=== PATIENT | female | born 2000 | race Caucasian/White ===

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

== ENCOUNTER 2022-01-19 00:49 | Emergency (ER) | payer OTHER ==
--- OUTSIDE RECORDS SUMMARY | 2022-01-19 00:53 | XMS REPORT | Continuity of Care Document ---
:2000 Author Organization [facility] t Address [address] [place] [address] Care Team Providers Name Role Phone Mavis Kee Primary Care Physician [phone] Dwight Schmitt Attending Clinician Dwight VARGAS Attending Clinician Unavailable Doctor Unassigned, Name Attending Clinician Unavailable Gabino Kee Attending Clinician Payers Payer Name Policy Type Policy Number Effective Date Expiration Date S ource Problems Condition Condition Condition Status Onset Resolution Last Treating Co mments Source Name Details Category Date Date Treatment Clinician Date Anemia, Anemia, Disease Active Univers 2-05 it y of 00:00: [address] Positive Positive Disease Active Unive rs GBS test GBS test 2-04 ity of 00:00: [address] Anemia of Anemia of Disease Active 2020-06 Uni vers mother in mother in -24 ity of , , [place] antepartum antepartum 00 [facility] Supervisio Supervisio Disease Active U nivers n of other n of other 7-19 it y of normal normal 00:00: [place] 00 [facility] Multiparit Multiparit Disease Active U nivers y y 7-19 ity of 00:00: [address] Screening Screening Disease Active Uni vers examinatio examinatio 4-06 it y of n for STD n for STD 00:00: [place] (sexually (sexually 00 [facility] transmitte transmitte Br anch d disease) d disease) Lump or Lump or Disease Active Univers mass in mass in 4-06 ity of breast breast 00:00: [place] 00 Medical Branch Disease Active 2020- Univers (spontaneo (spontaneo 8-29 it y of [place] vaginal [place] vaginal [place] delivery) delivery) 00 [facility] Single Single Disease Active 2020- Univers live live 8-29 it y of 00:00: [place] 00 Medical Branch Obstetrica Obstetrica Disease Active 2020-0 U nivers l l 8-29 ity of laceration laceration 00:[place] (side (side 00 Medical Wall) Wall) Branch 38 weeks 38 weeks Disease Active 2020-0 Unive rs gestation gestation 8-28 ity of of of 00:00: [place] 00 [facility] High risk High risk Disease Active 2020- Uni vers teen teen 3-16 [place] in third in third 00 Medica l trimester trimester Bran ch BMI BMI Disease Active 2020- Univers 26.0-26.9, 26.0-26.9, 3-16 it y of adult adult 00:00: [place] Medical Branch Chlamydia Chlamydia Disease Active Overview: Univers trachomati trachomati 1-21 Formattin ity of s s 00:00: g of this [place] infection infection 00 note Medi radha in mother in mother might be Br anch during during different third third from the trimester trimester original. of of Pending akhil Supervisio Supervisio Disease Active 2019- U nivers n of high n of high 1-17 ity of risk risk 00:00: [place] 00 Medi radha in third in third Branch trimester trimester Marijuana Marijuana Disease Active 2020-0 Overview: Univers use use 1-17 Formattin ity of 00:00: g of this [place] 00 note Medical might be Branch different from the original. Reports quit 06/14/19 Allergies, Adverse Reactions, Alerts Allergy Allergy Status Severity Reaction(s) Onset Inactive Treating Comm ents Source Name Type Date Date Clinician NO KNOWN Drug Active Univers ALLERGIE Class ity of S [facility] Social History Social Habit Start Date Stop Date Quantity Comments Source History SDOH University o f Alcohol Comment [place] Med ical Branch History [facility] University o f Alcohol Std [place] Medical Drinks Branch History [facility] o f Alcohol Binge [place] Medic al Branch Exposure to Not sure University of SARS-CoV-2 [facility] (event) Branch Alcohol intake 2021-09-17 2021-09-17 Lifetime University of 00:00:00 00:00:00 non-drinker [place] Medical (finding) Branch Tobacco use and 2019-07-15 2019-07-15 Never used Universit y of exposure 00:00:00 00:00:00 [place] [facility] History SDOH 2019-07-15 2019-07-15 1 University o f Alcohol Frequency 00:00:00 00:00:00 [facility] edical Branch Tobacco Comment 2019-07-15 2019-07-15 quit with Universit y of 00:00:00 00:00:00 positive preg [place] Medic al test Branch History of 2018-07-15 2019-06-14 Cigarette Smoker Universi ty of tobacco use 00:00:00 00:00:00 [facility] Sex Assigned At [birth year] Universit y of 00:00:00 00:00:00 [facility] Smoking Status Start Date Stop Date Source Former smoker 2019-07-15 00:00:00 2019-07-15 00:00:[address] [facility] Medications Ordered Filled Start Stop Current Ordering Indication Dosage Frequency Signature Comments Components Source Medication Medication Date Date Medication? Clinician (SIG) Name Name etonogestre 2021- No [id number] 68mg Univers L 09-17 ity of (NEXPLANON) 20:15: 19:07 [place] implant 68 00 :00 Medical mg Branch etonogestre 2021- No [id number] 68mg 68 mg, Univers L 09-17 Subdermal, ity of (NEXPLANON) 20:15: 19:07 ONCE NOW, [place] implant 68 00 :00 1 dose, On Med ical mg Tue Branch 09/17/21 at 1515, Routine
Use approved by: [employer] docusate Yes [id number] 240mg Take 1 Un bear calcium 240 2-05 capsule by it y of mg capsule 00:00: mouth once [place] 00 daily as Medical needed for Branch Constipati on. ferrous Yes [id number] 325mg Take 1 Uni vers sulfate 325 2-05 tablet by ity of mg (65 mg 00:00: mouth [place] iron) 00 daily. Medical tablet Branch ibuprofen Yes [id number] 600mg Take 1 U nivers 600 mg 2-05 tablet by ity of tablet 00:00: mouth [place] 00 every 6 Medical (six) Branch hours as needed (Pain). Take with food or milk. docusate Yes [id number] 240mg Take 1 Un bear calcium 240 2-05 capsule by it y of mg capsule 00:00: mouth once [place] 00 daily as Medical needed for Branch Constipati on. ferrous Yes [id number] 325mg Take 1 Uni vers sulfate 325 2-05 tablet by ity of mg (65 mg 00:00: mouth [place] iron) 00 daily. Medical tablet Branch ibuprofen Yes [id number] 600mg Take 1 U nivers 600 mg 2-05 tablet by ity of tablet 00:00: mouth [place] 00 every 6 Medical (six) Branch hours as needed (Pain). Take with food or milk. Yes [id number] 1{packe Take 1 Univers vit 8-16 t} Packet by ity of 33-iron-fol 00:00: mouth [place] ic-dha 00 daily. Medical (SELECT-OB Branch + DHA) 29 mg iron-1 mg -250 mg combo pack Yes [id number] 1{packe Take 1 Univers vit 8-16 t} Packet by ity of 33-iron-fol 00:00: mouth [place] ic-dha 00 daily. Medical (SELECT-OB Branch + DHA) 29 mg iron-1 mg -250 mg combo pack Immunizations Ordered Immunization Filled Immunization Date Status Commen ts Source Name Name [facility] 2021-05-22 Completed University of 00:00:00 [facility] Influenza Virus 2021-05-22 Completed Universit y of Vaccine Quad IM, 00:00:00 [place] Me dical Preserv and ABX Free Bran ch 6 MO-64 YRS TDAP 2021-05-22 Completed University of 00:00:00 [facility] Influenza Virus 2021-05-22 Completed Universit y of Vaccine Quad IM, 00:00:00 [place] Me dical Preserv and ABX Free Bran ch 6 MO-64 YRS HPV9 2020-11-06 Completed University of 00:00:00 [facility] HPV9 2020-11-06 Completed University of 00:00: [facility] HPV9 2020-07-09 Completed University of 00:00: [facility] HPV9 2020-07-09 Completed University of 00:00:00 [facility] HPV9 2020-04-06 Completed University of 00:00:00 [facility] HPV9 2020-04-06 Completed University of 00:00:00 [facility] Influenza Virus 2020-03-16 Completed Universit y of Vaccine Quad .5 mL 00:00:00 [facility] 6+ MO [place] Influenza Virus 2020-03-16 Completed Universit y of Vaccine Quad .5 mL 00:00:00 [facility] 6+ MO [place] TDAP 2019-12-29 Completed University of 00:00:00 [facility] TDAP 2019-12-29 Completed University of 00:00:00 [facility] Influenza Virus 2019-07-19 Completed Universit y of Vaccine Quad .5 mL 00:00:00 [facility] 6+ MO [place] Influenza Virus 2019-07-19 Completed Universit y of Vaccine 00:00:00 [facility] Influenza Virus 2019-07-19 Completed Universit y of Vaccine Quad .5 mL 00:00:00 [facility] 6+ MO [place] Influenza Virus 2019-07-19 Completed Universit y of Vaccine 00:00:00 [facility] Meningococcal 2016-02-15 Completed University of Vaccine 00:00:00 [facility] TDAP 2016-02-15 Completed University of 00:00:00 [facility] HEPATITIS A 2016-02-15 Completed University of 00:00:00 [facility] Meningococcal 2016-02-15 Completed University of Vaccine 00:00:00 [facility] TDAP 2016-02-15 Completed University of 00:00:00 [facility] HEPATITIS A 2016-02-15 Completed University of 00:00:00 [facility] HEPATITIS A 2011-04-21 Completed University of 00:00:00 [facility] HEPATITIS A 2011-04-21 Completed University of 00:00:00 [facility] Varicella 2008-03-06 Completed University of (varivax)(chicken 00:00:00 [facility] edical pox) Branch Varicella 2008-03-06 Completed University of (varivax)(chicken 00:00:00 [facility] edical pox) Branch DTP 2007-02-18 Completed University of 00:00:00 [facility] MMR 2007-02-18 Completed University of 00:00:00 [facility] Polio (IPV/OPV) 2007-02-18 Completed Universit y of 00:00:00 [facility] DTP 2007-02-18 Completed University of 00:00:00 [facility] MMR 2007-02-18 Completed University of 00:00:00 [facility] Polio (IPV/OPV) 2007-02-18 Completed Universit y of 00:00:00 [facility] Varicella 2004-05-20 Completed University of (varivax)(chicken 00:00:00 [facility] edical pox) Branch Varicella 2004-05-20 Completed University of (varivax)(chicken 00:00:00 [facility] edical pox) Branch HIB 3 Dose Schedule 2004-03-21 Completed Unive rsity of 00:00:00 [facility] MMR 2004-03-21 Completed University of 00:00:00 [facility] HIB 3 Dose Schedule 2004-03-21 Completed Unive rsity of 00:00:00 [facility] MMR 2004-03-21 Completed University of 00:00:00 [facility] DTP 2003-09-07 Completed University of 00:00:00 [facility] Polio (IPV/OPV) 2003-09-07 Completed Universit y of 00:00:00 [facility] Pneumococcal 7 2003-09-07 Completed University of Conjugate, PCV7 00:00:00 [facility] [place] [facility] ical (Prevnar7) Branch DTP 2003-09-07 Completed University of 00:00:00 [facility] Polio (IPV/OPV) 2003-09-07 Completed Universit y of 00:00:00 [facility] Pneumococcal 7 2003-09-07 Completed University of Conjugate, PCV7 00:00:00 [place] Med ical (Prevnar7) Branch DTP 2003-08-08 Completed University of 00:00:00 [facility] HIB 3 Dose Schedule 2003-08-08 Completed Unive rsity of 00:00:00 [facility] Hep B, Adol or Pedi 2003-08-08 Completed Unive rsity of Dosage 00:00:00 [facility] Polio (IPV/OPV) 2003-08-08 Completed Universit y of 00:00:00 [facility] Pneumococcal 7 2003-08-08 Completed University of Conjugate, PCV7 00:00:00 [place] Med ical (Prevnar7) Branch DTP 2003-08-08 Completed University of 00:00:00 [facility] HIB 3 Dose Schedule 2003-08-08 Completed Unive rsity of 00:00:00 [facility] Hep B, Adol or Pedi 2003-08-08 Completed Unive rsity of Dosage 00:00:00 [facility] Polio (IPV/OPV) 2003-08-08 Completed Universit y of 00:00:00 [facility] Pneumococcal 7 2003-08-08 Completed University of Conjugate, PCV7 00:00:00 [place] Med ical (Prevnar7) Branch DTP 2003-04-13 Completed University of 00:00:00 [facility] HIB 3 Dose Schedule 2003-04-13 Completed Unive rsity of 00:00:00 [facility] Hep B, Adol or Pedi 2003-04-13 Completed Unive rsity of Dosage 00:00:00 [facility] Polio (IPV/OPV) 2003-04-13 Completed Universit y of 00:00:00 [facility] Pneumococcal 7 2003-04-13 Completed University of Conjugate, PCV7 00:00:00 [place] Med ical (Prevnar7) Branch DTP 2003-04-13 Completed University of 00:00:00 [facility] HIB 3 Dose Schedule 2003-04-13 Completed Unive rsity of 00:00:00 [facility] Hep B, Adol or Pedi 2003-04-13 Completed Unive rsity of Dosage 00:00:00 [facility] Polio (IPV/OPV) 2003-04-13 Completed Universit y of 00:00:00 [facility] Pneumococcal 7 2003-04-13 Completed University of Conjugate, PCV7 00:00:00 [place] Med ical (Prevnar7) Branch Hep B, Adol or Pedi 2002 Completed Unive rsity of Dosage 00:00:00 [facility] Hep B, Adol or Pedi 2002 Completed Unive rsity of Dosage 00:00:00 [facility] Vital Signs Vital Name Observation Time Observation Value Comments Source Systolic blood 2021-09-17 15:14:00 111 mm[Hg] Univer sity of pressure [facility] Diastolic blood 2021-09-17 15:14:00 58 mm[Hg] Unive rsity of pressure [facility] Heart rate 2021-09-17 15:14:00 69 /min General acute hospital Body temperature 2021-09-17 15:14:00 36.33 [facility] Res[facility] rate 2021-09-17 15:14:00 16 /min [facility] Body height 2021-09-17 15:14:00 152.4 cm General acute hospital Body weight 2021-09-17 15:14:00 58.287 kg General acute hospital BMI 2021-09-17 15:14:00 25.10 kg/m2 General acute hospital Body mass index 2021-09-17 15:14:00 81.03 % Unive rsity of (BMI) [Percentile] [facility] Per age and sex Branch Procedures Procedure Date / Time Performing Clinician Source Performed POCT TEST 2021-09-17 15:15:00 Mc Vargas [facility] CONSENT FOR 2021-09-17 05:01:00 Doctor Unaalana, Mary Jane Univer sity of [place] CONTRACEPTION Name [facility] Encounters Start End Encounter Admission Attending Care Care Encounter Source Date/Time Date/Time Type Type Clinicians Facility Department ID 2021-09-17 2021-09-17 Office GUALBERTO Vargas 1.2.840.114 [id number] Univers 09:45:00 10:56:00 Visit Mc Quintanilla [employer] [id number] ity [facility] [id number] [place] as MATERNAL [id number] Med ical & CHILD [address] [place] [address] 2021-09-17 2021-09-17 Outpatient R SHEYLA [facility] [id number] Univers 09:45:00 10:56:[address] [facility] 2021-09-17 2021-09-17 Orders Doctor THOMASON 1.2.840.114 [id number] Univers 00:00:00 00:00:00 Only Unassigned, JENNIFER [id number] [facility] 4.2.7.2.686 [place] as [id number] [address] 2021-02-11 2021-02-11 [facility] [id number] 11:46:35 12:01:35 Roshunda R [employer] [id number] Visit [facility] [id number] MATERNAL [id number] & CHILD 107 [facility] 2021-01-14 2021-01-14 [facility] [id number] 11:01:09 12:17:32 Roshunda R [employer] [id number] Visit [facility] [id number] MATERNAL [id number] & CHILD 107 [facility] 2021-01-14 2021-01-14 Orders Doctor THOMASON [id number] 00:00:00 00:00:00 Only Unassigned, JENNIFER [id number] [place] [address]686 [id number] 2020-11-20 2020-11-20 [facility] [id number] 08:00:00 23:59:00 Encounter Mavis Tariq [id number] [place] 4.2.7.2.686 [place] [id number] 2020-11-14 2020-11-14 [facility] 1.2.840.114 [id number] 00:00:00 00:00:00 Mavis Lloyd [employer] [id number] [facility] [id number] MATERNAL [id number] & CHILD 107 [facility] 2020-11-13 2020-11-13 [facility] 1.2.840.114 [id number] 14:00:00 23:59:00 Encounter Mavis Tariq [id number] [place] 4.2.7.2.686 [place] [id number] 2020-11-13 2020-11-13 Orders Doctor THOMASON 1.2.840.114 [id number] 00:00:00 00:00:00 Only Unassigned, JENNIFER [id number] [place] [facility] 4.2.7.2.686 [id number] 2020-11-06 2020-11-06 Office Anelcorin [facility] [id number] 08:18:51 08:42:49 Visit Mavis Lloyd [employer] [id number] [facility] [id number] MATERNAL [id number] & CHILD [address] [place] [address] Results Test Description Test Time Test Comments Results Result Comments Source POCT TEST 2021-09-17 15:15:00 Test Item Value Reference Range Interpretation Comme nts POCT PREG (test code = 1605) Negative On board controls acceptable with C Line (test code = 3574) Yes POCT PREG LOT # (test code = 3575) POCT PREG TEST DATE (test code = 3576) [facility]
--- NOTE | 2022-01-19 04:33 | ER ---
Nurse's Notes [facility] Name: Ela Cm Age: 21 yrs Sex: Female : 2000 Arrival Date: 01/19/2022 Time: 00:51 Bed 15 Private MD: Diagnosis: Fall on same level from slipping, tripping and stumbling with subsequent striking against object Presentation: 01/19 00:51 Acuity: MARY 3 vc1 01:13 Chief complaint: EMS states: pt was walking behind her couch, stepped on a toy and vc1 fell. states she hit her head but doesn't know if it was the wall or a table. denies LOC. pt states that all she sees is black and stars. Coronavirus screen: Client denies travel out of the [place] in the last 14 days. At this time, the client does not indicate any symptoms associated with coronavirus-19. Ebola Screen: No symptoms or risks identified at this time. Initial Sepsis Screen: Does the patient meet any 2 criteria? No. Patient's initial sepsis screen is negative. Does the patient have a suspected source of infection? No. Patient's initial sepsis screen is negative. Risk Assessment: Do you want to hurt yourself or someone else? Patient reports no desire to harm self or others. Onset of symptoms was January 19, 2022. 01:13 Method Of Arrival: EMS: [facility] vc1 Triage Assessment: 01:16 General: Appears in no apparent distress. comfortable, Behavior is calm, cooperative. vc1 Pain: Complains of pain in head Also complains of photophobia. EENT: No deficits noted. No signs and/or symptoms were reported regarding the EENT system. Neuro: No deficits noted. Level of Consciousness is awake, alert, obeys commands, Oriented to person, place, time, situation, Reports blurred vision headache. Cardiovascular: No deficits noted. Denies chest pain, shortness of breath, Capillary refill < 3 seconds Clubbing of nail beds is absent JVD is absent Patient's skin is warm and dry. Respiratory: No deficits noted. Airway is patent Trachea midline Respiratory effort is even, unlabored, Respiratory pattern is regular, symmetrical. GI: No deficits noted. No signs and/or symptoms were reported involving the gastrointestinal system. : No deficits noted. No signs and/or symptoms were reported regarding the genitourinary system. Derm: No deficits noted. No signs and/or symptoms reported regarding the dermatologic system. Skin is intact, is healthy with good turgor, Skin is dry, Skin temperature is warm. Musculoskeletal: No deficits noted. No signs and/or symptoms reported regarding the musculoskeletal system. Circulation, motion, and sensation intact. Range of motion: intact in all extremities. 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 - Social history:: Smoking status: Reported history of juuling and/or vaping. Patient/guardian denies using alcohol, street drugs. Screenin:19 Abuse screen: Denies threats or abuse. Denies injuries from another. Nutritional vc1 screening: No deficits noted. Tuberculosis screening: No symptoms or risk factors identified. Fall Risk None identified. Assessment: 01:19 General: see triage assessment . vc1 02:20 Reassessment: Patient appears in no apparent distress at this time. No changes from lg3 previously documented assessment. Patient and/or family updated on plan of care and expected duration. Pain level reassessed. Patient is alert, oriented x 3, equal unlabored respirations, skin warm/dry/pink. 04:48 Reassessment: Patient appears in no apparent distress at this time. No changes from lg3 previously documented assessment. Patient and/or family updated on plan of care and expected duration. Pain level reassessed. Patient is alert, oriented x 3, equal unlabored respirations, skin warm/dry/pink. Patient states feeling better. Patient states symptoms have improved. Vital Signs: 01:15 BP 121 / 64; Pulse 71; Resp 16; Temp 98.9(O); Pulse Ox 100% ; Weight 53.52 kg (R); lp1 Height 5 ft. 0 in. (152.40 cm); Pain 8/10; 04:48 BP 124 / 72; Pulse 74; Resp 17 S; Pulse Ox 100% on R/A; lg3 01:15 Body Mass Index 23.05 (53.52 kg, 152.40 cm) lp1 ED Course: 00:51 Patient arrived in ED. vc1 00:51 Triage completed. vc1 01:03 Fernando Verma DO is Attending Physician. ms3 01:13 Jen Martinez, RN is Primary Nurse. vc1 01:16 Arm band placed on right wrist. vc1 01:19 Patient has correct armband on for positive identification. Bed in low position. Call vc1 light in reach. Side rails up X 1. Client placed on continuous cardiac and pulse oximetry monitoring. NIBP monitoring applied. Door closed. Noise minimized. Warm blanket given. 01:30 CT Head Brain wo Cont In Process Unspecified. EDMS 04:32 Mike Dwyer DO is Referral Physician. ms3 04:53 No provider procedures requiring assistance completed. Patient did not have IV access lg3 during this emergency room visit. Administered Medications: No medications were administered Medication: 04:53 VIS not applicable for this client. lg3 Outcome: 04:32 Discharge ordered by MD. ms3 04:53 Discharged to home ambulatory, with significant other. lg3 04:53 Condition: stable 04:53 Discharge instructions given to patient, Instructed on discharge instructions, follow up and referral plans. Demonstrated understanding of instructions, follow-up care. 04:54 Patient left the ED. lg3 Signatures: Dispatcher [employer] EDMS Candace Bryson, RN RN lp1 Ame Patrick RN RN lg3 Fernando Verma DO DO ms3 Jen Martinez, RICH VILLANUEVA vc1
--- NOTE | 2022-01-19 04:33 | EDPHYS ---
Physician Documentation [facility] Name: Ela Cm Age: 21 yrs Sex: Female : 2000 Arrival Date: 01/19/2022 Time: 00:51 Bed 15 Private MD: ED Physician Fernando Verma HPI: 01/19 01:33 This 21 yrs old Female presents to ER via EMS with complaints of fall with LOC.ms3 01:33 21-year-old female with past medical history of anemia presents status post fall 30 ms3 minutes prior to arrival. Patient states she hit her head and had loss of consciousness. Patient states she currently has a headache she rates an 8/10 and describes the pain as throbbing. Patient has not taken any medications for her pain. Patient denies alleviating or inciting factors.. 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 - Social history:: Smoking status: Reported history of juuling and/or vaping. Patient/guardian denies using alcohol, street drugs. ROS: 01:33 Constitutional: Negative for fever, and chills. Eyes: Negative for injury, pain, ms3 redness, and discharge, Neck: Negative for injury, pain, and swelling, Cardiovascular: Negative for chest pain, and palpitations. Respiratory: Negative for shortness of breath, cough, wheezing, and pleuritic chest pain, Abdomen/GI: Negative for abdominal pain, nausea, vomiting, diarrhea, and constipation, MS/Extremity: Negative for injury and deformity, Skin: Negative for injury, rash, and discoloration, Psych: Negative for depression, anxiety, suicide ideation, homicidal ideation, and hallucinations. Exam: 01:33 Constitutional: This is a well developed, well nourished patient who is awake, alert, ms3 and in no acute distress. Head/Face: Normocephalic, atraumatic. Eyes: Pupils equal round and reactive to light, extra-ocular motions intact. Lids and lashes normal. Conjunctiva and sclera are non-icteric and not injected. Periorbital areas with no swelling, redness, or edema. Neck: Trachea midline, no cervical lymphadenopathy. Supple, full range of motion without nuchal rigidity, or vertebral point tenderness. No Meningismus. Chest/axilla: Normal chest wall appearance and motion. Nontender with no deformity. Cardiovascular: Regular rate and rhythm with a normal S1 and S2. No gallops, murmurs, or rubs. Normal PMI, no JVD. No pulse deficits. Respiratory: Lungs have equal breath sounds bilaterally, clear to auscultation and percussion. No rales, rhonchi or wheezes noted. No increased work of breathing, no retractions or nasal flaring. Abdomen/GI: Soft, non-tender, with normal bowel sounds. No distension or tympany. No guarding or rebound. No evidence of tenderness throughout. Skin: Warm, dry with normal turgor. Normal color with no rashes, no lesions, and no evidence of cellulitis. MS/ Extremity: Pulses equal, no cyanosis. Neurovascular intact. Full, normal range of motion. Psych: Awake, alert, with orientation to person, place and time. Behavior, mood, and affect are within normal limits. Vital Signs: 01:15 BP 121 / 64; Pulse 71; Resp 16; Temp 98.9(O); Pulse Ox 100% ; Weight 53.52 kg (R); lp1 Height 5 ft. 0 in. (152.40 cm); Pain 8/10; 04:48 BP 124 / 72; Pulse 74; Resp 17 S; Pulse Ox 100% on R/A; lg3 01:15 Body Mass Index 23.05 (53.52 kg, 152.40 cm) lp1 MDM: 01:03 Patient medically screened. ms3 04:32 Differential diagnosis: Contusion of Hematoma on Intracranial bleed-. Data reviewed: ms3 vital signs, nurses notes, radiologic studies, and as a result, I will discharge patient. Data interpreted: Pulse oximetry: on room air is 100 %. Interpretation: normal. Counseling: I had a detailed discussion with the patient and/or guardian regarding: the historical points, exam findings, and any diagnostic results supporting the discharge/admit diagnosis, radiology results, the need for outpatient follow up, to return to the emergency department if symptoms worsen or persist or if there are any questions or concerns that arise at home. ED course: On re-evaluation patient is improved, A/O x4, nad, non-toxic, ambulatory in ED, speaking full sentences.. 01/19 01:04 Order name: CT Head Brain wo Cont ms3 Administered Medications: No medications were administered Disposition Summary: 01/19/22 04:32 Discharge Ordered Location: Home ms3 Condition: Stable ms3 Diagnosis - Fall on same level from slipping, tripping and stumbling with subsequent striking ms3 against object Followup: ms3 - With: Mike Dwyer DO - When: 2 - 3 days - Reason: Re-evaluation by your physician Discharge Instructions: - Discharge Summary Sheet ms3 - Fall Prevention in the Home, Adult ms3 Forms: - Medication Reconciliation Form ms3 - Thank You Letter ms3 - Antibiotic Education ms3 - Prescription Opioid Use ms3 Signatures: Dispatcher [employer] EDMS Fernando Verma DO DO ms3 Jen Martinez RN RN vc1 Corrections: (The following items were deleted from the chart) 01:04 01:04 Urine Dipstick-Ancillary ordered. ms3 ms3
[2022-01-19 05:16] VITALS: TEMP 98.9; O2SAT 100
[2022-01-19 05:22] VITALS: BP 124/72
--- NOTE | 2022-01-20 16:20 | RAD REPORT ---
EXAM DESCRIPTION: CT - Head Brain Wo Cont - 01/19/2022 6:49 am CLINICAL HISTORY: 21 years Female fall TECHNIQUE: Multiple axial CT images of the brain were performed followed by sagittal and coronal rec onstructed images. The CT study is performed according to ALARA (as low as reasonably achievable) or ALARA/IMAGE GENTLY, with automatic adjustment of mA and/or kV according to patient size. Performed on: 01/19/2022 at 1:15 AM COMPARISON: None. FINDINGS: Brain: There is no evidence of mass, acute mass effect or midline shift. There are no acut e extra-axial fluid collections. There is no evidence of acute intracranial hemorrhage. The cerebra l sulci and ventricles are normal in size and configuration. There are no focal abnormal areas of inc reased or decreased attenuation. Paranasal Sinuses and Mastoids: There is mild mucosal thickening of the paranasal sinuses. The mastoi d air cells are clear. Orbits: The orbital contents are grossly unremarkable. Bones: No acute osseous abnormalities are identified. Soft Tissues: No focal soft tissue abnormalities are identified. IMPRESSION: 1. No evidence of acute intracranial pathology. 2. Mild mucosal thickening of the paranasal sinuses. Electronically signed by: Odalys Horvath DO 01/19/2022 3:04 AM CDT Due to temporary technical issues with the PACS/Fluency reporting system, reports are being signed by the in house radiologists without review as a courtesy to insure prompt reporting. The interpreting radiologist is fully responsible for the content of the report.
== END 2022-01-19 04:54 | disposition home or self-care (01) ==
LOC: ER 00:49
DX: R51.9 Headache, unspecified (principal); W01.198A Fall on same level from slipping, tripping and stumbling with subsequent striking against other object, initial encounter
CPT/HCPCS: 70450; 99283

== ENCOUNTER 2024-04-25 06:39 | Emergency (ER) | payer SELFPAY ==
--- OUTSIDE RECORDS SUMMARY | 2024-04-25 06:43 | XMS REPORT | Continuity of Care Document ---
Author Name Unknown Address [address] [facility]. [address] [place] [address] [facility] thconnect Address [address] 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 Role Phone Mavis Kee Primary Care Physicia n CORIN BUTLER Attending Clinician Unavailable Doctor Unassigned, [place] Attending Clinician U Mc Reeves Attending Clinician + [phone] [facility] CARRION Attending Clinician Unavailab XIMENA Davies Attending Clinician Unavailable XIMENA TRUJILLO Attending Clinician Unavailable Ximena Trujillo MD Attending Clinician [phone] Ai Leonard DO Attending Clinician [phone] Nico Cross MD Attending Clinician [phone] Lab, [place] Attending Clinician Unavailable Mavis Kee Attending Clinician + MAVIS WHITLEY Attending Clinician Unavail able Provider, Ang-Rmchp Temp Attending Clinician Sallie Rosita Osuna Attending Clinician + ROSITA FERRER Attending Clinician Unavail able Lexie Parker CNM Attending Clinician [phone] LEXIE PARKER Attending Clinician Unavailtg kelley Ultrasound, Traci Mfm Attending Clinician UnavailJan Ramsey MD Attending Clinician [phone] Ultrasound, Muna Attending Clinician Unavaila Rosas Rainey MD Attending Clinician XIMENA TRUJILLO Admitting Clinician Unavailable Ximena Trujillo MD Admitting Clinician MAVIS WHITLEY Admitting Clinician Unavail able Payers Payer Name Policy Type Policy Number Effective Date Expirati on Date Source [facility] [id number] 2019 00:00:00 Problems Condition Name Condition Details Condition Category Status Onset Date Resolution Date Last Treatment Date Treating Clinician Comments Source Anemia, Anemia, Disease Active 2-05 00:00: 00 [facility] Positive GBS test Positive GBS test Disease Active 2-04 00:00: 00 [facility] Anemia of mother in , antepartum Anemia of mother in , antepartum Disease Active 2020-06 00:00: 00 [facility] Anemia of mother in , antepartum Anemia of mother in , antepartum Disease Active 2020-06 00:00: 00 [facility] Supervisio n of other normal Supervisio n of other normal Disease Active 7-19 00:00: 00 [facility] Multiparit y Multiparit y Disease Active 7-19 00:00: 00 [facility] Screening examinatio n for STD (sexually transmitte d disease) Screening examinatio n for STD (sexually transmitte d disease) Disease Active 4-06 00:00: 00 [facility] Lump or mass in breast Lump or mass in breast Disease Active 4-06 00:00: 00 [facility] (spontaneo us vaginal delivery) (spontaneo us vaginal delivery) Disease Active 8- 00:00: 00 [facility] Single live Single live Disease Active 8- 00:00: 00 [facility] Obstetrica l laceration (side Wall) Obstetrica l laceration (side Wall) Disease Active 8- 00:00: 00 [facility] 38 weeks gestation of 38 weeks gestation of Disease Active 2020-0 8-28 00:00: 00 [facility] High risk teen in third trimester High risk teen in third trimester Disease Active 2020-0 3-16 00:00: 00 [facility] BMI 26.0-26.9, adult BMI 26.0-26.9, adult Disease Active 2020-0 3-16 00:00: 00 [facility] BMI 26.0-26.9, adult BMI 26.0-26.9, adult Disease Active 2020-0 3-16 00:00: 00 [facility] Chlamydia trachomati s infection in mother during third trimester of Chlamydia trachomati s infection in mother during third trimester of Disease Active 2020-0 1-21 00:00: 00 Overview: Formattin g of this note might be different from the original. Pending akhil [facility] Supervisio n of high risk in third trimester Supervisio n of high risk in third trimester Disease Active 20200 1-17 00:00: 00 [facility] Marijuana use Marijuana use Disease Active 20200 1-17 00:00: 00 Overview: Formattin g of this note might be different from the original. Reports quit 06/14/19 [facility] Allergies, Adverse Reactions, Alerts Allergy Name Allergy Type Status Severity Reaction(s) Onset Date Inactive Date Treating Clinician Comments Source NO KNOWN ALLERGIE S Drug Class Active [facility] Social History Social Habit Start Date Stop Date Quantity Comments Source History SDOH Alcohol Comment [place] [facility] History SDOH Alcohol Std Drinks [facility] History SDOH Alcohol Binge [facility] Exposure to SARS-CoV-2 (event) 2021-08-18 00:00:00 2021-09-17 10:13:00 Not sure [facility] Alcohol intake 2021-06-06 00:00:00 2021-06-06 00:00:00 Lifetime non-drinker (finding) [facility] History of Social function 2021-01-14 00:00:00 2021-01-14 00:00:00 [facility] Tobacco use and exposure 2019-07-15 00:00:00 2019-07-15 00:00:00 Smokeless tobacco non-user [facility] History SDOH Alcohol Frequency 2019-07-15 00:00:00 2019-07-15 00:00:00 1 [facility] Tobacco Comment 2019-07-15 00:00:00 2019-07-15 00:00:00 quit with positive preg test [facility] History of tobacco use 2018-07-15 00:00:00 2019-06-14 00:00:00 Cigarette Smoker [facility] Sex Assigned At 2002 00:00:00 2000 00:00:00 [facility] Smoking Status Start Date Stop Date Source Ex-smoker 2019-07-15 00:00:00 2019-07[facility]15 [facility] Ordered Medication Name Filled Medication Name Start Date Stop Date Current Medication? Ordering Clinician Indication Dosage Frequency Signature (SIG) Comments Components Source etonogestre L (NEXPLANON) implant 68 mg - 20:15: 00 09-17 19:07 :00 No [id number] 68mg [facility] docusate calcium 240 mg capsule - 00:00: 00 Yes [id number] 240mg Take 1 capsule by mouth once daily as needed for Constipati on. [facility] ferrous sulfate 325 mg (65 mg iron) tablet - 00:00: 00 Yes [id number] 325mg Take 1 tablet by mouth daily. [facility] ibuprofen 600 mg tablet 2-05 00:00: 00 Yes [id number] 600mg Take 1 tablet by mouth every 6 (six) hours as needed (Pain). Take with food or milk. [facility] azithromyci n 500 mg tablet 1-24 00:00: 00 08-03 00:00 :00 No [id number] 1000mg Take 2 tablets by mouth daily. [facility] vit 33-iron-fol ic-dha (SELECT-OB + DHA) 29 mg iron-1 mg -250 mg combo pack 02-11 00:00: 00 Yes [id number] 1{packe t} Take 1 Packet by mouth daily. [facility] vit 33-iron-fol ic-dha (SELECT-OB + DHA) 29 mg iron-1 mg -250 mg combo pack 02-11 00:00: 00 Yes [id number] 1{packe t} Take 1 Packet by mouth daily. [facility] Immunizations Ordered Immunization Name Filled Immunization Name Date Status Comments Source TDAP 2021-05-22 00:00:00 Completed [facility] Influenza Virus Vaccine Quad IM, Preserv and ABX Free 6 MO-64 YRS 2021-05-22 00:00:00 Completed [facility] TDAP 2021-05-22 00:00:00 Completed [facility] Influenza Virus Vaccine Quad IM, Preserv and ABX Free 6 MO-64 YRS 2021-05-22 00:00:00 Completed [facility] HPV9 2020-11-06 00:00:00 Completed [facility] HPV9 2020-11-06 00:00:00 Completed [facility] HPV9 2020-07-09 00:00:00 Completed [facility] HPV9 2020-07-09 00:00:00 Completed [facility] HPV9 2020-04-06 00:00:00 Completed [facility] HPV9 2020-04-06 00:00:00 Completed [facility] Influenza Virus Vaccine Quad .5 mL IM 6+ MO 2020-03-16 00:00:00 Completed [facility] Influenza Virus Vaccine Quad .5 mL IM 6+ MO 2020-03-16 00:00:00 Completed [facility] TDAP 2019-12-29 00:00:00 Completed [facility] TDAP 2019-12-29 00:00:00 Completed [facility] Influenza Virus Vaccine Quad .5 mL IM 6+ MO 2019-07-19 00:00:00 Completed [facility] Influenza Virus Vaccine 2019-07-19 00:00:00 Completed [facility] Influenza Virus Vaccine Quad .5 mL IM 6+ MO 2019-07-19 00:00:00 Completed [facility] Influenza Virus Vaccine 2019-07-19 00:00:00 Completed [facility] HEPATITIS A 2016-02-15 00:00:00 Completed [facility] Meningococcal Vaccine 2016-02-15 00:00:00 Completed [facility] TDAP 2016-02-15 00:00:00 Completed [facility] HEPATITIS A 2016-02-15 00:00:00 Completed [facility] Meningococcal Vaccine 2016-02-15 00:00:00 Completed [facility] TDAP 2016-02-15 00:00:00 Completed [facility] HEPATITIS A 2011-04-21 00:00:00 Completed [facility] HEPATITIS A 2011-04-21 00:00:00 Completed [facility] Varicella (varivax)(chicken pox) 2008-03-06 00:00:00 Completed [facility] Varicella (varivax)(chicken pox) 2008-03-06 00:00:00 Completed [facility] DTP 2007-02-18 00:00:00 Completed [facility] MMR 2007-02-18 00:00:00 Completed [facility] Polio (IPV/OPV) 2007-02-18 00:00:00 Completed [facility] DTP 2007-02-18 00:00:00 Completed [facility] MMR 2007-02-18 00:00:00 Completed [facility] Polio (IPV/OPV) 2007-02-18 00:00:00 Completed [facility] Varicella (varivax)(chicken pox) 2004-05-20 00:00:00 Completed [facility] Varicella (varivax)(chicken pox) 2004-05-20 00:00:00 Completed [facility] HIB 3 Dose Schedule 2004-03-21 00:00:00 Completed [facility] MMR 2004-03-21 00:00:00 Completed [facility] HIB 3 Dose Schedule 2004-03-21 00:00:00 Completed [facility] MMR 2004-03-21 00:00:00 Completed [facility] DTP 2003-09-07 00:00:00 Completed [facility] Polio (IPV/OPV) 2003-09-07 00:00:00 Completed [facility] Pneumococcal 7 Conjugate, PCV7 (Prevnar7) 2003-09-07 00:00:00 Completed [facility] DTP 2003-09-07 00:00:00 Completed [facility] Polio (IPV/OPV) 2003-09-07 00:00:00 Completed [facility] Pneumococcal 7 Conjugate, PCV7 (Prevnar7) 2003-09-07 00:00:00 Completed [facility] DTP 2003-08-08 00:00:00 Completed [facility] HIB 3 Dose Schedule 2003-08-08 00:00:00 Completed [facility] Hep B, Adol or Pedi Dosage 2003-08-08 00:00:00 Completed [facility] Polio (IPV/OPV) 2003-08-08 00:00:00 Completed [facility] Pneumococcal 7 Conjugate, PCV7 (Prevnar7) 2003-08-08 00:00:00 Completed [facility] DTP 2003-08-08 00:00:00 Completed [facility] HIB 3 Dose Schedule 2003-08-08 00:00:00 Completed [facility] Hep B, Adol or Pedi Dosage 2003-08-08 00:00:00 Completed [facility] Polio (IPV/OPV) 2003-08-08 00:00:00 Completed [facility] Pneumococcal 7 Conjugate, PCV7 (Prevnar7) 2003-08-08 00:00:00 Completed [facility] DTP 2003-04-13 00:00:00 Completed [facility] HIB 3 Dose Schedule 2003-04-13 00:00:00 Completed [facility] Hep B, Adol or Pedi Dosage 2003-04-13 00:00:00 Completed [facility] Polio (IPV/OPV) 2003-04-13 00:00:00 Completed [facility] Pneumococcal 7 Conjugate, PCV7 (Prevnar7) 2003-04-13 00:00:00 Completed [facility] DTP 2003-04-13 00:00:00 Completed [facility] HIB 3 Dose Schedule 2003-04-13 00:00:00 Completed [facility] Hep B, Adol or Pedi Dosage 2003-04-13 00:00:00 Completed [facility] Polio (IPV/OPV) 2003-04-13 00:00:00 Completed [facility] Pneumococcal 7 Conjugate, PCV7 (Prevnar7) 2003-04-13 00:00:00 Completed [facility] Hep B, Adol or Pedi Dosage 2002 00:00:00 Completed [facility] Hep B, Adol or Pedi Dosage 2002 00:00:00 Completed [facility] Influenza Virus Vaccine Quad .5 mL IM 6+ MO (FLUZONE/FLULAVAL/F LUARIX) Unknown Completed [facility] DTP Unknown Completed [facility] HIB 3 Dose Schedule Unknown Completed [facility] HEPATITIS A Unknown Completed [facility] Hep B, Adol or Pedi Dosage Unknown Completed [facility] Influenza Virus Vaccine Unknown Completed [facility] Meningococcal Vaccine Unknown Completed [facility] MMR Unknown Completed [facility] Polio (IPV/OPV) Unknown Completed [facility] TDAP Unknown Completed [facility] Varicella (varivax)(chicken pox) Unknown Completed [facility] Pneumococcal 7 Conjugate, PCV7 (Prevnar7) Unknown Completed [facility] HPV9 Unknown Completed [facility] Influenza Virus Vaccine Quad IM, Preserv and ABX Free 6 MO-64 YRS (FLUCELVAX) Unknown Completed [facility] Influenza Virus Vaccine Quad .5 mL IM 6+ MO (FLUZONE/FLULAVAL/F LUARIX) Unknown Completed [facility] DTP Unknown Completed [facility] HIB 3 Dose Schedule Unknown Completed [facility] HEPATITIS A Unknown Completed [facility] Hep B, Adol or Pedi Dosage Unknown Completed [facility] Influenza Virus Vaccine Unknown Completed [facility] Meningococcal Vaccine Unknown Completed [facility] MMR Unknown Completed [facility] Polio (IPV/OPV) Unknown Completed [facility] TDAP Unknown Completed [facility] Varicella (varivax)(chicken pox) Unknown Completed [facility] Pneumococcal 7 Conjugate, PCV7 (Prevnar7) Unknown Completed [facility] HPV9 Unknown Completed [facility] Influenza Virus Vaccine Quad IM, Preserv and ABX Free 6 MO-64 YRS (FLUCELVAX) Unknown Completed [facility] Influenza Virus Vaccine Quad .5 mL IM 6+ MO (FLUZONE/FLULAVAL/F LUARIX) Unknown Completed [facility] DTP Unknown Completed [facility] HIB 3 Dose Schedule Unknown Completed [facility] HEPATITIS A Unknown Completed [facility] Hep B, Adol or Pedi Dosage Unknown Completed [facility] Influenza Virus Vaccine Unknown Completed [facility] Meningococcal Vaccine Unknown Completed [facility] MMR Unknown Completed [facility] Polio (IPV/OPV) Unknown Completed [facility] TDAP Unknown Completed [facility] Varicella (varivax)(chicken pox) Unknown Completed [facility] Pneumococcal 7 Conjugate, PCV7 (Prevnar7) Unknown Completed [facility] HPV9 Unknown Completed [facility] Influenza Virus Vaccine Quad IM, Preserv and ABX Free 6 MO-64 YRS (FLUCELVAX) Unknown Completed [facility] Influenza Virus Vaccine Quad .5 mL IM 6+ MO (FLUZONE/FLULAVAL/F LUARIX) Unknown Completed [facility] DTP Unknown Completed [facility] HIB 3 Dose Schedule Unknown Completed [facility] HEPATITIS A Unknown Completed [facility] Hep B, Adol or Pedi Dosage Unknown Completed [facility] Influenza Virus Vaccine Unknown Completed [facility] Meningococcal Vaccine Unknown Completed [facility] MMR Unknown Completed [facility] Polio (IPV/OPV) Unknown Completed [facility] TDAP Unknown Completed [facility] Varicella (varivax)(chicken pox) Unknown Completed [facility] Pneumococcal 7 Conjugate, PCV7 (Prevnar7) Unknown Completed [facility] HPV9 Unknown Completed [facility] Influenza Virus Vaccine Quad IM, Preserv and ABX Free 6 MO-64 YRS (FLUCELVAX) Unknown Completed [facility] Vital Signs Vital Name Observation Time Observation Value Comments Akil dejesus Systolic blood pressure 2021-09-17 15:14:00 111 mm[facility]Hg[facility] Diastolic blood pressure 2021-09-17 15:14:00 58 mm[Hg[facility] Heart rate 2021-09-17 15:14:00 69 /min [facility] Body temperature 2021-09-17 15:14:00 36.33 Vira [facility] Respiratory rate 2021-09-17 15:14:00 16 /min [facility] Body height 2021-09-17 15:14:00 152.4 cm [facility] Body weight 2021-09-17 15:14:00 58.287 kg [facility] BMI 2021-09-17 15:14:00 25.10 kg/m2 [facility] Body mass index (BMI) [Percentile] Per age and sex 2021-09-17 15:14:00 81.03 % [place] [facility] Procedures Procedure Date / Time Performed Performing Clinician Source POCT TEST 2021-09-17 15:15:00 Robbie Carrion [facility] CONSENT FOR CONTRACEPTION 2021-09-17 05:01:00 Doctor Unassigned, [place] [facility] Encounters Start Date/Time End Date/Time Encounter Type Admission Type Attending Clinicians Care Facility Care Department Encounter ID Source 2021-04-26 14:37:38 Outpatient [facility] [id number] [facility] 2022-10-17 13:45:00 2022-10-17 13:45:00 Outpatient R CORIN BUTLER [facility] [id number] [facility] 2021-12-02 00:00:00 2021-12-02 00:00:00 Patient Secure Msg Doctor Unassigned, [place] [facility] [id number] [id number] [id number] [id number] [facility] 2021-09-17 09:45:00 2021-09-17 10:56:00 Office Visit Mc Carrion [facility] [employer] [facility] [id number] [id number] [id number] [id number] [facility] 2021-09-17 09:45:00 2021-09-17 10:56:00 Outpatient MC CARTER [facility] [id number] [facility] 2021-09-17 09:45:00 2021-09-17 09:45:00 Outpatient GISEL CARTERMARCELLOTg [facility] [id number] [facility] 2021-09-17 00:00:00 2021-09-17 00:00:00 Orders Only Doctor Unassigned, [place] [facility] 1..114 350.1.13.10 [id number] [id number] [facility] 2021-08-23 08:30:00 2021-08-23 09:00:02 Outpatient GISEL CARTERMARCELLOTg [facility] [id number] [facility] 2021-08-23 08:30:00 2021-08-23 09:00:02 Routine Visit Carrion, Mc Quintanilla [facility] [employer] [facility] [id number] [id number] [id number] [id number] [facility] 2021-08-06 08:00:00 2021-08-06 08:00:00 Outpatient GISEL CARTERMARCELLOTg [facility] [id number] [facility] 2021-08-01 11:05:00 2021-08-03 12:40:00 Inpatient P XIMENA TRUJILLO SHANNON [facility] [id number] [facility] 2021-08-01 11:05:00 2021-08-03 12:40:00 Hospital Encounter Ximena Trujillo [facility] ..114 350.1.13.10 4.2.7.2.686 [id number] [facility] 2021-08-01 15:36:00 2021-08-01 22:41:00 Anesthesia Event Ai Leonard Prameela [facility] 1..114 350.1.13.10 [id number] [id number] [facility] 2021-08-01 11:05:00 2021-08-01 11:05:00 Inpatient Rina XIMENA TRUJILLO XIMENA TRUJILLO [facility] [id number] [facility] 2021-07-31 14:00:00 2021-07-31 14:00:00 Outpatient GISEL CARTERELISSA [facility] [id number] [facility] 2021-07-30 09:15:00 2021-07-30 09:37:31 Outpatient Dwight CARRION, GISELGLORIA [facility] [id number] [facility] 2021-07-30 09:15:00 2021-07-30 09:37:31 Routine Visit Carrion, Mc Quintanilla [facility] [employer] [email or web address] [id number] [id number] [id number] [id number] [facility] 2021-07-26 08:15:00 2021-07-26 08:51:36 Outpatient GISEL CARTERELISSA [facility] [id number] [facility] 2021-07-26 08:15:00 2021-07-26 08:51:36 Routine Visit Carrion, Mc [facility] [employer] [facility]ILD [facility] [[email or web address]] .840.114 350.1.13.10 [id number] [id number] [facility] 2021-07-26 08:15:00 2021-07-26 08:15:00 Outpatient GISEL CARTERELISSA [facility] [id number] [facility] 2021-07-24 00:00:00 2021-07-24 00:00:00 Patient Secure Msg Doctor Unassigned, [place] [facility] [id number] 350.1.13.10 4.2.7.2.686 [id number] [facility] 2021-07-23 13:00:00 2021-07-23 13:01:34 Photolithographer Visit Lab, Ang-Rmchp Mavis Whitley [facility] [employer] [facility] [[email or web address]] [id number] [id number] [id number] [id number] [facility] 2021-07-23 13:00:00 2021-07-23 13:00:00 Outpatient R MAVIS WHITLEY [facility] [id number] [facility] 2021-07-23 13:00:00 2021-07-23 13:00:00 Outpatient R MAVIS WHITLEY [facility] [id number] [facility] 2021-07-22 00:00:00 2021-07-22 00:00:00 Patient Secure Msg Mc Carrion [facility] [employer] [facility] [[email or web address]] [id number] 350.1.13.10 [id number] [id number] [facility] 2021-07-22 00:00:00 2021-07-22 00:00:00 Telephone Mc Carrion [facility] [employer] [facility] [[email or web address]] [id number] [id number] [id number] [id number] [facility] 2021-07-19 08:00:00 2021-07-19 08:38:11 Outpatient R MC CARRION [facility] [id number] [facility] 2021-07-19 08:00:00 2021-07-19 08:38:11 Routine Visit Mc Carrion [facility] [employer] [facility] [[email or web address]] [id number] [id number] [id number] [id number] [facility] 2021-07-04 08:15:00 2021-07-04 08:36:48 Outpatient MC CARTER [facility] [id number] [facility] 2021-07-04 08:15:00 2021-07-04 08:30:00 Routine Visit Mc Carrion Dwight [facility] [employer] [facility] MATERNAL & CHILD [facility] [[email or web address]] [id number] 350.1.13.10 4.2.7.2.686 [id number] [facility] 2021-07-04 08:15:00 2021-07-04 08:15:00 Outpatient GISEL CARTERMARCELLOTg [facility] [id number] [facility] 2021-07-04 08:15:00 2021-07-04 08:15:00 Outpatient GISEL CARTERMARCELLOTg [facility] [id number] [facility] 2021-06-20 10:15:00 2021-06-20 10:41:44 Outpatient MC [facility] [id number] [facility] 2021-06-20 10:15:00 2021-06-20 10:41:44 Routine Visit Mc Carrion Dwight [facility] [employer] [facility] MATERNAL [facility] CHILD [facility] [[email or web address]] 1..840.114 350.1.13.10 4.2.7.2.686 [id number] [facility] 2021-06-06 09:30:20 2021-06-06 10:03:52 Routine Visit Provider, Brice-Rosita Gilliam [facility] [employer] [facility]ILD [facility] [[email or web address]] [id number] 350.1.13.10 4.2.7.2.686 [id number] [facility] 2021-06-06 09:30:00 2021-06-06 10:03:52 Outpatient ROSITA DUFF [facility] [id number] [facility] 2021-06-06 00:00:00 2021-06-06 00:00:00 Patient Secure Msg Doctor Unassigned, [place] [facility] 1..840.114 350.1.13.10 4.2.7.2.686 [id number] [facility] 2021-05-22 10:30:08 2021-05-22 11:04:41 Routine Visit Provider, Lexie Jasso [facility] [employer] [facility]ILD [facility] [[email or web address]] 1..840.114 350.1.13.10 4.2.7.2.686 [id number] [facility] 2021-05-22 10:30:00 2021-05-22 11:04:41 Outpatient LEXIE MCCOLLUM [facility] [id number] [facility] 2021-05-10 00:00:00 2021-05-10 00:00:00 Rosita Araya [facility] [employer] [facility] MATERNAL & CHILD [facility] 1..840.114 350.1.13.10 4.2.7.2.686 [id number] [facility] 2021-05-08 10:00:00 2021-05-08 10:46:58 Outpatient ROSITA DUFF [facility] [id number] [facility] 2021-05-08 09:38:55 2021-05-08 10:46:58 Routine Visit Provider, Rosita Montaño [facility] [employer] [facility] CHILD [facility] [[email or web address]] 1..840.114 350.1.13.10 4.2.7.2.686 [id number] [facility] 2021-04-29 08:00:00 2021-04-29 08:00:00 Outpatient Rina [facility] [id number] [facility] 2021-04-24 08:04:42 2021-04-24 09:04:42 Photolithographer Visit Ultrasound, Jan Isaacs [facility] 1..840.114 350.1.13.10 4.2.7.2.686 [id number] [facility] 2021-04-24 08:00:00 2021-04-24 08:00:00 Outpatient P [facility] [id number] [facility] 2021-04-16 11:00:00 2021-04-16 11:00:00 Outpatient P [facility] [id number] [facility] 2021-04-08 09:07:57 2021-04-08 09:43:56 Routine Visit Provider, Rosita Montaño [facility] [employer] [facility]ILD [facility] ..840.114 350.1.13.10 4.2.7.2.686 [id number] [facility] 2021-04-08 09:15:00 2021-04-08 09:15:00 Outpatient R [facility] [id number] [facility] 2021-04-08 08:30:00 2021-04-08 08:30:00 Outpatient R MC CARRION [facility] [id number] [facility] 2021-03-11 08:30:45 2021-03-11 08:45:45 Routine Visit Mc Carrion [facility] [employer] [facility] & CHILD [facility] [[email or web address]] ..840.114 350.1.13.10 4.2.7.2.686 [id number] [facility] 2021-03-11 08:30:00 2021-03-11 08:30:00 Outpatient R MC CARRION [facility] [id number] [facility] 2021-02-26 09:56:13 2021-02-26 10:26:13 Photolithographer Visit Ultrasound, Rosas Garner [facility] [employer] [facility] 1.2.840.114 350.1.13.10 4.2.7.2.686 [id number] [facility] 2021-02-26 10:00:00 2021-02-26 10:00:00 Outpatient P [facility] [id number] [facility] 2021-02-26 00:00:00 2021-02-26 00:00:00 Abstract Mc Carrion [facility] [employer] [facility] MATERNAL & CHILD [facility] [[email or web address]] 1.2.840.114 350.1.13.10 4.2.7.2.686 [id number] [facility] 2021-02-11 11:46:35 2021-02-11 12:01:35 Routine Visit Mc Carrion [facility] [employer] [facility] MATERNAL & CHILD [facility] [[email or web address]] 1.2.840.114 350.1.13.10 4.2.7.2.686 [id number] 2021-02-11 11:45:00 2021-02-11 11:45:00 Outpatient R MC CARRION [facility] [id number] [facility] 2021-01-14 11:01:09 2021-01-14 12:17:32 Initial Visit Mc Carrion [facility] [employer] [facility] MATERNAL & CHILD [facility] [[email or web address]] 1.2.840.114 350.1.13.10 4.2.7.2.686 [id number] 2021-01-14 10:45:00 2021-01-14 10:45:00 Outpatient R MC CARRION [facility] [id number] [facility] 2021-01-14 00:00:00 2021-01-14 00:00:00 Orders Only Doctor Unassigned, [place] [facility] 1.2.840.114 350.1.13.10 4.2.7.2.686 [id number] 2020-11-20 08:00:00 2020-11-20 23:59:00 Hospital Encounter Mavis Whitley [facility] 1.2.840.114 350.1.13.10 4.2.7.2.686 [id number] 2020-11-20 00:00:00 2020-11-20 00:00:00 Outpatient R TUYETKENMAVIS [facility] [id number] [facility] 2020-11-14 00:00:00 2020-11-14 00:00:00 Telephone Mavis Whitley [facility] [employer] [facility] 1.2840.114 350.1.13.10 4.2.7.2.686 [id number] 2020-11-13 14:24:04 2020-11-13 23:59:00 Outpatient R TUYETKENMAVIS [facility] [id number] [facility] 2020-11-13 14:00:00 2020-11-13 23:59:00 Hospital Encounter Mavis Whitley [facility] 1.2840.114 350.1.13.10 4.2.7.2.686 [id number] 2020-11-13 00:00:00 2020-11-13 00:00:00 Outpatient R TUYETKENMAVIS [facility] [id number] [facility] 2020-11-13 00:00:00 2020-11-13 00:00:00 Orders Only Doctor Unassigned, [place] [facility] 1.2840.114 350.1.13.10 4.2.7.2.686 [id number] 2020-11-06 08:18:51 2020-11-06 08:42:49 Office Visit Mavis Whitley C [facility] [employer] [facility] 1.2.840.114 350.1.13.10 4.2.7.2.686 [id number] 2020-11-06 08:15:00 2020-11-06 08:15:00 Outpatient MAVIS JARAMILLO [facility] [id number] [facility] 2020-11-05 09:30:00 2020-11-05 09:30:00 Outpatient R [facility] [id number] [facility] 2020-10-02 08:00:00 2020-10-02 08:00:00 Outpatient R MAVIS WHITLEY [facility] [id number] [facility] 2020-07-09 08:30:00 2020-07-09 08:30:00 Outpatient MC CARTER [facility] [id number] [facility] 2020-04-06 08:30:00 2020-04-06 08:30:00 Outpatient MC [facility] [id number] [facility] 2020-03-16 09:00:00 2020-03-16 09:00:00 Outpatient R MAVIS WHITLEY [facility] [id number] [facility] 2020-02-27 09:00:00 2020-02-27 09:00:00 Outpatient MC [facility] [id number] [facility] 2020-02-22 15:00:00 2020-02-22 15:00:00 Outpatient MC [facility] [id number] [facility] 2020-02-16 10:30:00 2020-02-16 10:30:00 Outpatient MC [facility] [id number] [facility] 2020-02-09 09:00:00 2020-02-09 09:00:00 Outpatient MC [facility] [id number] [facility] 2020-01-26 08:15:00 2020-01-26 08:15:00 Outpatient MC [facility] [id number] [facility] 2020-01-12 11:00:00 2020-01-12 11:00:00 Outpatient MC [facility] [id number] [facility] 2019-12-29 13:00:00 2019-12-29 13:00:00 Outpatient MC [facility] [id number] [facility] 2019-12-21 10:45:00 2019-12-21 10:45:00 Outpatient MC [facility] [id number] [facility] 2019-12-21 10:00:00 2019-12-21 10:00:00 Outpatient MC [facility] [id number] [facility] 2019-12-18 14:20:00 2019-12-18 14:20:00 Outpatient R [facility] [id number] [facility] 2019 10:15:00 2019 10:15:00 Outpatient MC [facility] [id number] [facility] 2019-11-08 10:00:00 2019-11-08 10:00:00 Outpatient MC [facility] [id number] [facility] 2019-10-19 11:00:00 2019-10-19 11:00:00 Outpatient R [facility] [id number] [facility] 2019-10-10 08:45:00 2019-10-10 08:45:00 Outpatient MC [facility] [id number] [facility] 2019-09-12 09:15:00 2019-09-12 09:15:00 Outpatient MC [facility] [id number] [facility] Results Test Description Test Time Test Comments Results Result Co mments Source [facility]
[2024-04-25] MEDS ORDERED: AMOX/K CLAV 875 MG TAB ONE (06:51)
--- NOTE | 2024-04-25 06:57 | EDPHYS ---
Physician Documentation [facility] Name: Toi Barajas Age: 23 yrs Sex: Female : 2000 Arrival Date: 04/25/2024 Time: 06:39 Bed 8 Private MD: ED Physician Richard Tran HPI: 04/25 06:43 This 23 yrs old Female presents to ER via Unassigned with complaints of nasal rn congestion and nosebleeding. 06:43 The patient or guardian reports Nasal congestion and irritation. Onset: The rn symptoms/episode began/occurred 1 week(s) ago. Severity of symptoms: At their worst the symptoms were moderate, in the emergency department the symptoms are unchanged. The patient has not experienced similar symptoms in the past. Patient reports nasal congestion and sinus pressure for 1 week. Lately with blowing of nose and poking nose has had numerous nosebleeds. No chronic medical problems. No trauma. No fever. Ktoy-tkv-kjpqznv medication not helping. No shortness of breath.. 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 - Infectious Disease History:: Denies. - Family history:: not pertinent. - Social history:: Smoking status: Reported history of juuling and/or vaping. - Hospitalizations: : No recent hospitalization is reported. ROS: 06:44 Constitutional: Negative for fever, chills, and weight loss, ENT: Positive for nasal rn congestion and nosebleed. Positive for sinus pressure Neck: Negative for injury, pain, and swelling, Cardiovascular: Negative for chest pain, palpitations, and edema, Respiratory: Negative for shortness of breath, cough, wheezing, and pleuritic chest pain, Abdomen/GI: Negative for abdominal pain, nausea, vomiting, diarrhea, and constipation, Neuro: Positive for headache, negative for focal weakness or numbness. No seizure. Exam: 06:44 Constitutional: This is a well developed, well nourished patient who is awake, alert, rn and in no acute distress. Head/Face: Normocephalic, atraumatic. ENT: Bilateral nasal turbinate inflammation with septal inflammation. No active bleeding. No stridor. No masses. No septal abscess noted. Neuro: Awake and alert, GCS 15 Vital Signs: 06:39 BP 135 / 90; Pulse 94; Resp 17; Temp 98.3; Pulse Ox 97% ; Weight 53.52 kg; Height 5 ft. bm8 0 in. ; Pain 5/10; 07:04 BP 133 / 94; Pulse 88; Resp 17; Temp 98.3; Pulse Ox 96% ; Pain 5/10; bm8 06:39 Body Mass Index 23.05 (53.52 kg, 152.4 cm) bm8 06:39 Pain Scale: Adult bm8 07:04 Pain Scale: Adult bm8 Sixto Coma Score: 07:04 Eye Response: spontaneous(4). Motor Response: obeys commands(6). Verbal Response: bm8 oriented(5). Total: 15. MDM: 06:42 Medical Screening Exam initiated rn 06:54 Differential Diagnosis: Upper Respiratory Infection Sinusitis. Differential Diagnosis: rn Viral Syndrome. Data reviewed: vital signs, nurses notes. Data reviewed: and as a result, I will discharge patient. Counseling: I had a detailed discussion with the patient and/or guardian regarding the historical points, exam findings, and any diagnostic results supporting the discharge/admit diagnosis, the need for outpatient follow up, to return to the emergency department if symptoms worsen or persist or if there are any questions or concerns that arise at home. Special discussion: I discussed with the patient/guardian in detail that at this point there is no indication for admission to the hospital. It is understood, however, that if the symptoms persist or worsen the patient needs to return immediately for re-evaluation. Administered Medications: 06:59 Drug: Amoxicillin-Clavulanate PO 875 mg PO once Route: PO; bm8 06:59 Follow up: Response: No adverse reaction; Medication Administered at Departure bm8 Disposition Summary: 04/25/24 06:56 Discharge Ordered Notes: Location: Home rn Problem: new rn Symptoms: are unchanged rn Condition: Stable rn Diagnosis - Acute sinusitis, unspecified rn Followup: rn - With: Private Physician - When: As needed - Reason: Recheck today's complaints, Re-evaluation by your physician Discharge Instructions: - Discharge Summary Sheet rn - Sinusitis, Adult rn Forms: - Medication Reconciliation Form rn - Antibiotic 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
--- NOTE | 2024-04-25 07:11 | ER ---
Nurse's Notes [facility] Name: Toi Barajas Age: 23 yrs Sex: Female : 2000 Arrival Date: 04/25/2024 Time: 06:39 Bed 8 Private MD: Diagnosis: Acute sinusitis, unspecified Presentation: 04/25 06:39 Chief complaint: Patient states: I have been congested for 9 days and for two days bm8 every time I blow my nose its blood. Coronavirus screen: At this time, the client does not indicate any symptoms associated with coronavirus-19. Ebola Screen: Patient negative for fever greater than or equal to 101.5 degrees Fahrenheit, and additional compatible Ebola Virus Disease symptoms Patient denies exposure to infectious person. Patient denies travel to an Ebola-affected area in the 21 days before illness onset. No symptoms or risks identified at this time. 06:39 Method Of Arrival: EMS: [facility] bm8 06:39 Initial Sepsis Screen: Does the patient meet any 2 criteria? No. Patient's initial bm8 sepsis screen is negative. Does the patient have a suspected source of infection? No. Patient's initial sepsis screen is negative. Risk Assessment: Do you want to hurt yourself or someone else? Patient reports no desire to harm self or others. Onset of symptoms was April 17, 2024. 06:39 Acuity: MARY 4 bm8 Triage Assessment: 06:39 General: Appears in no apparent distress. uncomfortable, Behavior is calm, cooperative, bm8 appropriate for age. Pain: Complains of pain in face Pain currently is 5 out of 10 on a pain scale. 06:39 EENT: Nares no drainage noted, sounds heavily congested when inhaling. Reports nasal bm8 congestion. Neuro: No deficits noted. Level of Consciousness is awake, alert, obeys commands, Oriented to person, place, time, situation, Appropriate for age. Cardiovascular: Denies chest pain, Capillary refill < 3 seconds in bilateral fingers toes Patient's skin is warm and dry. Respiratory: Airway is patent Respiratory effort is even, unlabored, Respiratory pattern is regular, symmetrical. GI: No signs and/or symptoms were reported involving the gastrointestinal system. : No signs and/or symptoms were reported regarding the genitourinary system. Derm: No signs and/or symptoms reported regarding the dermatologic system. Musculoskeletal: No signs and/or symptoms reported regarding the musculoskeletal system. 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 - Infectious Disease History:: Denies. - Family history:: not pertinent. - Social history:: Smoking status: Reported history of juuling and/or vaping. - Hospitalizations: : No recent hospitalization is reported. Screenin:04 [facility] ED Fall Risk Assessment (Adult) History of falling in the last 3 months, bm8 including since admission No falls in past 3 months (0 pts) Confusion or Disorientation No (0 pts) Intoxicated or Sedated No (0 pts) Impaired Gait No (0 pts) Mobility Assist Device Used No (0 pt) Altered Elimination No (0 pt) Score/Fall Risk Level 0 - 2 = Low Risk Oriented to surroundings, Maintained a safe environment, Educated pt \T\ family on fall prevention, incl call for assistance when getting out of bed, Assessed \T\ reinforced patient's understanding of fall precautions, Hourly rounding (assess needs \T\ fall precautionary measures) done, Used ambulatory aids as needed (educated on \T\ assisted with), Used gait belt as appropriate. Abuse screen: Denies threats or abuse. Nutritional screening: No deficits noted. Tuberculosis screening: No symptoms or risk factors identified. Assessment: 07:04 Reassessment: see triage note. bm8 Vital Signs: 06:39 BP 135 / 90; Pulse 94; Resp 17; Temp 98.3; Pulse Ox 97% ; Weight 53.52 kg; Height 5 ft. bm8 0 in. ; Pain 5/10; 07:04 BP 133 / 94; Pulse 88; Resp 17; Temp 98.3; Pulse Ox 96% ; Pain 5/10; bm8 06:39 Body Mass Index 23.05 (53.52 kg, 152.4 cm) bm8 06:39 Pain Scale: Adult bm8 07:04 Pain Scale: Adult bm8 Sixto Coma Score: 07:04 Eye Response: spontaneous(4). Motor Response: obeys commands(6). Verbal Response: bm8 oriented(5). Total: 15. ED Course: 06:39 Arm band placed on right wrist. bm8 06:42 Patient arrived in ED. rn 06:42 Richard Tran MD is Attending Physician. rn 06:50 Ame Holley RN is Primary Nurse. lg3 07:02 Triage completed. bm8 07:04 Patient has correct armband on for positive identification. Bed in low position. Call bm8 light in reach. Side rails up X 1. Client placed on continuous cardiac and pulse oximetry monitoring. NIBP monitoring applied. Pulse ox on. NIBP on. Door closed. Noise minimized. Lights dimmed. Warm blanket given. Pillow given. Verbal reassurance given. Head of bed elevated. 07:04 No provider procedures requiring assistance completed. Patient did not have IV access bm8 during this emergency room visit. 07:06 Provided Education on: post er care. bm8 Administered Medications: 06:59 Drug: Amoxicillin-Clavulanate PO 875 mg PO once Route: PO; bm8 06:59 Follow up: Response: No adverse reaction; Medication Administered at Departure bm8 Medication: 07:04 VIS not applicable for this client. bm8 Outcome: 06:56 Discharge ordered by . rn 07:06 Discharged to home ambulatory, bm8 07:06 Condition: stable 07:06 Discharge instructions given to patient, Instructed on discharge instructions, follow up and referral plans. no drinking with medication, no driving heavy equipment, medication usage, safety practices, Demonstrated understanding of instructions, follow-up care, medications, Prescriptions given X 1, 07:10 Patient left the ED. bm8 Signatures: Richard Tran MD MD rn Able, Lacie, RN RN 3 Bear Brown RN RN 8
[2024-04-25 09:04] VITALS: TEMP 98.3
[2024-04-25 09:05] VITALS: BP 133/94; O2SAT 96
== END 2024-04-25 07:10 | disposition home or self-care (01) ==
LOC: ER 06:39 → MERGE 06:39 → ER 07:10
DX: J01.90 Acute sinusitis, unspecified (principal)
CPT/HCPCS: 99284